=== PATIENT | male | born 1975 | race Caucasian/White ===

== ENCOUNTER → 2024-03-26 11:26 | Outpatient (BNVA) | payer BC, SELFPAY | PROVIDERS: PCP Family Medicine; Visit Provider Family Medicine | DX: R63.4 Abnormal weight loss (principal); R20.2 Paresthesia of skin | CPT/HCPCS: 85025 ==

== ENCOUNTER → 2024-04-05 15:20 | Outpatient (BNVA) | payer BC, SELFPAY | PROVIDERS: PCP Family Medicine; Visit Provider Family Medicine | DX: R20.2 Paresthesia of skin (principal); R63.4 Abnormal weight loss | CPT/HCPCS: 80053; 82607; 83036; 84155; 84165; 84439; 84443; 85025 ==

== ENCOUNTER → 2024-05-20 13:07 | Outpatient (BNVA) | payer BC, SELFPAY | PROVIDERS: PCP Family Medicine; Visit Provider Family Medicine | DX: R31.0 Gross hematuria (principal) | CPT/HCPCS: 81000; 87086 ==